=== PATIENT | male | born 1990 | race American Indian/Alaskan Native ===

== ENCOUNTER 2020-05-26 11:16 | Emergency (ER) | payer SELFPAY ==
[2020-05-26 11:43] VITALS: BP 126/72
[2020-05-26] MEDS ORDERED: LIDOCAINE-MPF (1%) 10 MG/1 ML VIAL 5 ML INFILTRATI ONE (12:09)
--- NOTE | 2020-05-26 12:10 | Emergency Department Report ---
ED Male HPI - General Chief complaint: Urogenital-Male Stated complaint: PELVIC PAIN/URINE PAIN Time Seen by Provider: 05/26/20 11:33 Source: patient Mode of arrival: Ambulatory Limitations: No Limitations - History of Present Illness Initial comments: 30-year-old male presents to the ER today complaint of intermittent lower abdominal pain and urinary urgency. He states his symptoms started about 4 days ago. Described as a sharp pain. He reports mild discomfort in testicles. He denies any dysuria, hematuria or urinary frequency. He denies any penile discharge. He states that he has been sexually active for about 2 years. He denies any other symptoms at this time. MD Complaint: other (Lower abdominal pain, urinary urgency) -: Gradual (4 days ago) - Related Data Previous Rx's Medication Instructions Recorded Last Taken Type Meloxicam [Mobic] 7.5 mg PO Q12H #30 tablet 06/16/13 Unknown Rx Amoxicillin [Trimox CAP] 500 mg PO Q8H #21 capsule 06/26/14 Unknown Rx Promethazine Dm (Nf) [Phenergan Dm 5 ml PO Q6H PRN #120 ml 06/26/14 Unknown Rx 6.25/15 mg 5 ml] traMADoL [Ultram 50 MG tab] 50 mg PO Q6HR PRN #20 tablet 06/26/14 Unknown Rx Doxycycline Hyclate [Doxycycline 100 mg PO Q12HR #14 tab 05/26/20 Unknown Rx Hyclate TAB] Allergies Allergy/AdvReac Type Severity Reaction Status Date / Time No Known Allergies Allergy Verified 06/16/13 08:59 ED Review of Systems ROS: Stated complaint: PELVIC PAIN/URINE PAIN Other details as noted in HPI Comment: All other systems reviewed and negative Respiratory: denies: cough, shortness of breath, wheezing Cardiovascular: denies: chest pain, palpitations Gastrointestinal: abdominal pain. denies: nausea, vomiting, diarrhea, constipation, hematemesis, melena, hematochezia Genitourinary: urgency. denies: dysuria, frequency, hematuria, discharge, testicular pain, testicular mass Skin: denies: rash, lesions Neurological: denies: headache, weakness, paresthesias Psychiatric: denies: anxiety, depression Hematological/Lymphatic: denies: easy bleeding, easy bruising ED Past Medical Hx - Past Medical History Previous Medical History?: No - Surgical History Past Surgical History?: Yes Additional Surgical History: Left inguinal herniorrhaphy - Social History Smoking Status: Current Some Day Smoker Substance Use Type: Marijuana - Medications Home Medications: Home Medications Medication Instructions Recorded Confirmed Last Taken Type Meloxicam [Mobic] 7.5 mg PO Q12H #30 tablet 06/16/13 Unknown Rx Amoxicillin [Trimox CAP] 500 mg PO Q8H #21 capsule 06/26/14 Unknown Rx Promethazine Dm (Nf) [Phenergan Dm 5 ml PO Q6H PRN #120 ml 06/26/14 Unknown Rx 6.25/15 mg 5 ml] traMADoL [Ultram 50 MG tab] 50 mg PO Q6HR PRN #20 tablet 06/26/14 Unknown Rx Doxycycline Hyclate [Doxycycline 100 mg PO Q12HR #14 tab 05/26/20 Unknown Rx Hyclate TAB] ED Physical Exam - General Limitations: No Limitations General appearance: alert, in no apparent distress - Head Head exam: Present: atraumatic, normocephalic, normal inspection - Eye Eye exam: Present: normal appearance, PERRL, EOMI Pupils: Present: normal accommodation - ENT ENT exam: Present: normal exam, mucous membranes moist - Respiratory Respiratory exam: Present: normal lung sounds bilaterally. Absent: respiratory distress - Cardiovascular Cardiovascular Exam: Present: regular rate - GI/Abdominal GI/Abdominal exam: Present: soft. Absent: distended, tenderness - exam: Present: normal inspection, other (Mild tenderness over the right epididymis) External exam: Present: normal external exam - Neurological Exam Neurological exam: Present: alert, oriented X3, CN II-XII intact, normal gait - Psychiatric Psychiatric exam: Present: normal affect, normal mood - Skin Skin exam: Present: intact ED Course Vital Signs 05/26/20 11:36 Temperature 98 F Pulse Rate 76 Respiratory 20 Rate Blood Pressure 126/72 O2 Sat by Pulse 100 Oximetry ED Medical Decision Making - Radiology Data Radiology results: report reviewed Findings [facility] [address] [place] [address] Ultrasound Report Signed Patient: MAGALY BATES MR# : [id number] : 1990 Acct:[id number] Age/Sex: 30 / M ADM Date: 05/26/20 Loc: ED Attending Dr: Ordering Physician: NED RAPP Date of Service: 05/26/20 Procedure(s): US testicular doppler comp Accession Number(s): [id number] cc: NED RAPP ULTRASOUND SCROTUM INDICATION: Unspecified testicular pain. Dysuria. COMPARISON None available. FINDINGS: RIGHT TESTICLE: 4.2 x 1.9 x 2.7 cm. Normal echogenicity. Normal color flow. No solid or cystic lesions. RIGHT EPIDIDYMIS: There is a simple epididymal cyst measuring 4 x 3 x 3 mm. No other significant abnormality. LEFT TESTICLE: 4.0 x 1.9 x 2.8 cm. Normal echogenicity. Normal color flow. No solid or cystic lesions. LEFT EPIDIDYMIS: No significant abnormality. HYDROCELE: None seen. VARICOCELE: None seen. ADDITIONAL FINDINGS: None. IMPRESSION: 1. No acute abnormality of the testes/scrotum. 2. Epididymal cyst as above. Signer Name: Saman Alonso MD Signed: 05/26/2020 2:15 PM Workstation Name: [id number] Transcribed By: MN Dictated By: Saman Alonso MD Electronically Authenticated By: Saman Alonso MD Signed Date/Time: 05/26/201414 DD/ 13 TD/TT: - Medical Decision Making 30-year-old male presents to the ER today complaint of intermittent lower abdominal pain and urinary urgency. He states his symptoms started about 4 days ago. Described as a sharp pain. He reports mild discomfort in testicles. He denies any dysuria, hematuria or urinary frequency. He denies any penile discharge. He states that he has been sexually active for about 2 years. He denies any other symptoms at this time. Urinalysis unremarkable. Testicular ultrasound shows a epididymal cyst but otherwise normal The patient is resting comfortably and feels, is alert and in no distress. The history, exam, diagnostic testing and current condition do not suggest acute appendicitis, bowel obstruction, acute cholecystitis, bowel perforation, major GI bleed, severe diverticulitis, abdominal aortic aneurysm, mesenteric ischemia, volvulus, severe urinary obstruction, kidney stone testicular torsion, severe epididymitis, testicular mass, sepsis or other significant pathology to warrant further testing, continued ED treatment, admission or surgical evaluation at this point. Discussed results with patient. He will be treated prophylactically for gonorrhea and chlamydia. The patient's vital signs have been stable. The patient does not have uncontrollable pain, intractable vomiting or other significant symptoms. The patient's condition is stable and appropriate for discharge from the emergency department. The patient will pursue further outpatient evaluation with the primary care physician or other designated or consulting physician as indicated in the discharge instructions. Critical care attestation.: If time is entered above; I have spent that time in minutes in the direct care of this critically ill patient, excluding procedure time. ED Disposition Clinical Impression: Dysuria, Urinary urgency Disposition: DC-01 TO HOME OR SELFCARE Is pt being admited?: No Does the pt Need Aspirin: No Condition: Stable Instructions: Dysuria Additional Instructions: Take the antibiotic as prescribed. Drink lots of water. Follow up with urologist listed below if not better. Return to ED if symptoms changes or worsens./ Prescriptions: Doxycycline Hyclate [Doxycycline Hyclate TAB] 100 mg PO Q12HR #14 tab Referrals: CLINT LANGE MD [Staff Physician] - 3-5 Days Time of Disposition: 15:03
[2020-05-26 12:47] LABS: Bilirubin,Urine NEG (Negative); Blood,Urine NEG (Negative); Color,Urine Straw (Yellow); Protein,Urine <15 mg/dL mg/dL (Negative); Urobilinogen,Urine < 2.0 mg/dL (<2.0)
--- NOTE | 2020-05-26 14:20 | Ultrasound Report ---
ULTRASOUND SCROTUM INDICATION: Unspecified testicular pain. Dysuria. COMPARISON None available. FINDINGS: RIGHT TESTICLE: 4.2 x 1.9 x 2.7 cm. Normal echogenicity. Normal color flow. No solid or cystic lesion s. RIGHT EPIDIDYMIS: There is a simple epididymal cyst measuring 4 x 3 x 3 mm. No other significant abno rmality. LEFT TESTICLE: 4.0 x 1.9 x 2.8 cm. Normal echogenicity. Normal color flow. No solid or cystic lesions . LEFT EPIDIDYMIS: No significant abnormality. HYDROCELE: None seen. VARICOCELE: None seen. ADDITIONAL FINDINGS: None. IMPRESSION: 1. No acute abnormality of the testes/scrotum. 2. Epididymal cyst as above. Signer Name: Saman Alonso MD Signed: 05/26/2020 2:15 PM Workstation Name: [id number]
== END 2020-05-26 15:09 | disposition home or self-care (01) ==
LOC: ED 11:16
DX: R39.15 Urgency of urination (principal); R30.0 Dysuria; F17.200 Nicotine dependence, unspecified, uncomplicated; F12.90 Cannabis use, unspecified, uncomplicated; Z79.899 Other long term (current) drug therapy; Z98.890 Other specified postprocedural states
CPT/HCPCS: 81001; 93975; 96372; 99284; J0696